=== PATIENT | male | born 1960 | race Caucasian/White ===

== ENCOUNTER 2020-04-24 08:54 | Day surgery (SDC) | payer OTHER ==
[2020-04-23 09:32] VITALS: BMI 26.4
[~2020-04-24 08:54] MED LIST: LACTATED RINGERS 1,000 ML IV SCH; LIDOCAINE 1% (10MG/ML) FOR IV START INTRADERMA PRN
[2020-04-24 09:36] VITALS: TEMP 97.5
[2020-04-24] MEDS ORDERED: PROPOFOL 10 MG/ML 20 ML VIAL IV ONE (10:27)
[2020-04-24] MEDS ORDERED: LIDOCAINE 1% INJ 10MG/ML (20 ML MDV) ONE (10:27)
--- NOTE | 2020-04-24 10:41 | P.PCN ---
Date of Procedure: 04/24/20 Procedure(s) Performed: BRIEF HISTORY: Patient is a 60-year-old, pleasant, male scheduled for an upper endoscopy as a part of evaluation of intermittent dysphagia to solids for the last 2 years duration. He had upper endoscopy done by Dr. Huang in August 2019 that showed normal esophagus and LA grade a reflux esophagitis. He has been on Prilosec 20 mg twice daily for several months with no help. Hence he scheduled for repeat upper endoscopy with possible dilation today.. PROCEDURE PERFORMED: Esophagogastroduodenoscopy. PREOPERATIVE DIAGNOSIS: Intermittent dysphagia to solids.. IV sedation per anesthesia. PROCEDURE: After informed consent was obtained, the patient was brought into the endoscopy unit. IV sedation was administered by Anesthesia under continuous monitoring. Initially the Olympus GIF-140 video endoscope was inserted into the mouth. Esophagus intubated without any difficulty. It was gradually advanced into the stomach and duodenum and carefully examined. The bulb and the second part of the duodenum appeared normal. The scope at this time was withdrawn to the stomach, adequately insufflated with air, and upon careful examination, mucosa of the antrum, body, cardia and the fundus appeared normal. The scope was then withdrawn into the esophagus. The GE junction was located at 41 cm from the incisors. There was early stricture of the distal esophagus at the GE junction which did not impede the passage of the scope. This was dilated using 15-16.5 mm TTS balloon in a sequential fashion for 30 seconds. There was a 1.5 cm ulceration noted at the GE junction which was biopsied. There were several linear erosions with thickened esophageal folds noted in the mid and distal esophagus and multiple biopsies were done from this area. The rest of esophagus appeared normal and the patient tolerated the procedure well. IMPRESSION: 1. Distal esophageal narrowing status post balloon dilation 15 and 16.5 mm TTS balloon as described above. 2. 1.5 cm ulceration at the GE junction status post biopsy 3. Thickened folds with linear erosions in the mid and distal esophagus consistent with severe reflux esophagitis, status post biopsies to rule out eosinophilic esophagitis. RECOMMENDATIONS: The findings of this examination were discussed with the patient as well as his family. He was advised to increase the omeprazole to 40 mg twice daily and follow antireflux measures. He'll be seen in office in 4 weeks..
[2020-04-24 10:46] VITALS: RESP 16
[2020-04-24 10:56] VITALS: BP 127/80; PULSE 49
== END 2020-04-24 11:20 ==
LOC: ORWHC2ENDO 08:54
PROVIDERS: ATTEND Internal Medicine Gastroenterology
DX: K22.2 Esophageal obstruction (principal); K25.9 Gastric ulcer, unspecified as acute or chronic, without hemorrhage or perforation; K22.10 Ulcer of esophagus without bleeding; K21.00 Gastro-esophageal reflux disease with esophagitis, without bleeding; I10 Essential (primary) hypertension; Z98.890 Other specified postprocedural states; Z79.899 Other long term (current) drug therapy; Z88.5 Allergy status to narcotic agent; Z88.0 Allergy status to penicillin
CPT/HCPCS: 88305; 43239; 43249; J2001; J2704; C1726

== ENCOUNTER → 2021-06-09 | Outpatient (CLI) | payer BC | END | disposition home or self-care (01) | LOC: LABWHC1 09:28 | PROVIDERS: ATTEND Urology | DX: R97.20 Elevated prostate specific antigen [PSA] (principal) | CPT/HCPCS: 36415; 84153 ==